=== PATIENT | male | born 1990 | race African-American/Black ===

== ENCOUNTER 2023-12-03 16:32 | Emergency (ER) | payer MEDICARE, MEDICAID | END 2023-12-03 19:20 | disposition left against medical advice (07) | LOC: ER 16:33 | DX: S61.219A Laceration without foreign body of unspecified finger without damage to nail, initial encounter (principal); X58.XXXA Exposure to other specified factors, initial encounter; Y93.89 Activity, other specified; Y92.89 Other specified places as the place of occurrence of the external cause; Y99.8 Other external cause status ==

== ENCOUNTER 2025-07-10 15:59 | Emergency (ER) | payer MEDICARE, MEDICAID ==
[~2025-07-10] VITALS: Ht 182.9 cm; Wt 76.4 kg
[2025-07-10 16:06] VITALS: BP 138/86; PULSE 97; RESP 18; TEMP 97.3; O2SAT 98
[2025-07-11] MEDS ORDERED: OXCA150T14 PO (20:25)
[2025-07-11] MEDS ORDERED: HYDR50TA65 PO (20:25)
== END 2025-07-10 17:29 | disposition left against medical advice (07) ==
LOC: ER 16:00
DX: Z00.8 Encounter for other general examination (principal); Z53.21 Procedure and treatment not carried out due to patient leaving prior to being seen by health care provider